=== PATIENT | female | born 1985 | race Caucasian/White ===

== ENCOUNTER 2019-06-29 21:53 | Observation (INO) ==
--- NOTE | 2019-06-29 21:59 | Emergency Department Note ---
Disposition Clinical Impression: Community acquired pneumonia Qualifiers: Laterality: right Lung location: lower lobe of lung Qualified Code(s): J18.1 - Lobar pneumonia, unspecified organism Disposition: Admitted As Inpatient Condition: Fair Referrals: Romaine Pathak [Primary Care Provider] - Forms: ED Satisfaction Letter Time of Disposition: 00:09 SOB HPI - General Chief Complaint: ED Shortness of Breath/Dyspnea Stated Complaint: SHORT OF BREATH Time Seen by Provider: 06/29/19 21:55 Source: patient Mode of arrival: private vehicle Limitations: no limitations Nursing Notes Reviewed: Yes Vital Signs Reviewed: Yes - History of Present Illness Patient presents stating she has had cough and congestion over the course of the week and half. His been taking [id number] medications without much relief. She has periods of coughing and severe shortness of breath. She states this is progressively gotten worse. She believes this is probably due to asthma or COPD because she "smokes like a freight train". She has an old inhaler at home that she is tried without relief. She has had a cough which was initially productive of only small amount of phlegm and now is producing more frequent green phlegm. She denies fevers or chills. She is chest pain other than being sore with coughing. She denies nausea, vomiting, abdominal pain or diarrhea. She denies any extremity swelling or pain. She denies any ill exposures. She states her last period is 3 weeks ago and has no concern of because she notes that would require having sex. She has an 8-year-old at home who is being cared for by her mother at this time. Pt Subjective Complaint: shortness of breath Onset (ago): week(s) (1.5) Context: recent illness Severity: moderate, severe Consistency/Duration: intermittent, gradually worsening Improves with: bronchodilators Worsens with: lying flat, exertion, coughing Known history of: asthma Associated symptoms: Reports: chest pain (Sore with coughing), cough, wheezing, sputum production, orthopnea (Worse coughing when laying flat). Denies: pain with inspiration, fever, lower extremity pain, polyuria, polydipsia, pa rasthesias, palpitations, hemoptysis, diaphoresis, nausea/vomiting, syncope, abdominal pain, rash Treatment prior to arrival: bronchodilator Cough present: Yes Cough Description: Voluntary, Productive, Hacking, Rattling, Wheezy Cough Frequency: Intermittent Sputum production: Yes Sputum Amount: Moderate Sputum Color: Green - Related Data Home oxygen amount: none Home Medications Medication Instructions Recorded Confirmed Quetiapine Fumarate [Seroquel] 200 mg PO DAILY 07/28/18 06/29/19 Naratriptan HCl [Amerge] 2.5 mg PO AD PRN 12/13/18 06/29/19 Gabapentin [Neurontin] 300 mg PO TID 06/29/19 06/29/19 Allergies Allergy/AdvReac Type Severity Reaction Status Date / Time No Known Allergies Allergy Verified 06/29/19 22:01 All systems ED: reviewed and negative except as stated. Past Medical History - Past Medical History Attestation: Yes The following information was validated with the patient. Source: patient, old records reviewed, nursing notes reviewed Medical history: Reports: arthritis, GERD, hepatitis, migraine, other (Recurrent vomiting) Surgical history: Reports: cholecystectomy, orthopedic, other (Right knee surgery) Psychiatric history: Reports: anxiety, bipolar, depression BAR ROLLER history: Reports: no BAR ROLLER history - Social History Smoking Status: Current every day smoker Smokeless Tobacco Status: No Alcohol use: Reports: none Drug use: Reports: none, IV Drug Use (Clean since 2013) Physical Exam - General Limitations: no limitations General appearance: alert, in distress - Head Head exam: atraumatic, normocephalic, normal inspection - Eye Eye exam: Present: normal appearance, PERRL, EOMI - ENT ENT exam: normal exam, normal oropharynx, mucous membranes moist - Neck Neck exam: Present: normal inspection, full ROM, trachea midline - Chest Chest inspection: Present: normal inspection, symmetric chest wall rise - Respiratory Respiratory exam: Present: respiratory distress, wheezes, prolonged expiratory phase, other (Persistent hacking cough) - Cardiovascular Cardiovascular exam: Present: regular rate, normal rhythm, normal heart sounds. Absent: tachycardia - Abdominal Exam Abdominal exam: Present: soft, Non-Tender, normal bowel sounds. Absent: tenderness, distention, guarding, rebound, rigidity - Extremities Exam Extremities exam: Present: normal inspection, full ROM, normal capillary refill. Absent: tenderness, pedal edema, calf tenderness - Expanded Lower Extremity Exam Neurovascular/Tendon exam: Present: normal capillary refill Gait: observed and normal - Back Exam Back exam: Present: normal inspection, full ROM. Absent: tenderness - Neurological Exam Neurological exam: Present: alert, oriented X3 - Psychiatric Psychiatric exam: Present: normal affect, normal mood - Skin Skin exam: Present: warm, dry, intact, normal color. Absent: diaphoresis, pallor Course Course Narrative: 2229: Patient has been having some coughing spells and saturations down to 84 and 85% on room air. This is after a double DuoNeb aerosol. She is producing phlegm clearly will be best observed on oxygen and more aggressive treatment. I have ordered IV, lab work as well as Solu-Medrol, azithromycin and Rocephin intravenously. With return of additional testing I will discuss inpatient observation and orders with Dr. Velez. 0003: Patient has been observed for an extended period in the department. There are nurse staffing issues for admission to [facility] or to our inpatient floor. We will have a third nurse available in the morning at 7 AM. I discussed care with Dr. Velez and he is agreeable with observation of this patient but with the provision that she remain in the emergency department until the staffing is better on the floor in the morning. Verbal orders have been obtained for her observation and we will start those in the emergency departmen t. Vital Signs Temperature 98.1 F 06/29/19 21:54 Pulse Rate 80 06/29/19 21:54 Respiratory Rate 16 06/29/19 21:54 Blood Pressure 134/93 06/29/19 21:54 O2 Sat by Pulse Oximetry 91 06/29/19 21:54 Temperature 98.1 F 06/29/19 21:54 Pulse Rate 80 06/29/19 23:33 Respiratory Rate 22 06/29/19 23:46 Blood Pressure 123/77 06/29/19 23:33 O2 Sat by Pulse Oximetry 90 06/29/19 23:46 Oxygen Delivery Oxygen Delivery Nasal Cannula Shortness of Breath/Dyspnea - Differential Diagnosis Likely: acute exacerbation of chronic obstructive airways disease, pneumonia, asthma with exacerbation - Lab Data Lab results reviewed: Yes I reviewed the patient's lab results. Result diagrams: 06/29/19 23:04 06/29/19 23:04 Lab Results 06/29/19 06/29/19 06/29/19 Range/Units 23:04 23:04 23:04 WBC 6.3 (4.3-11.1) K/mcL RBC 4.30 (3.82-4.97) M/mcL Hgb 12.7 (11.5-15.4) g/dL Hct 37.4 (35.3-44.9) % MCV 87.0 (83.0-100.0) fL MCH 29.5 (28.0-33.3) pg MCHC 34.0 (31.6-35.5) g/dL RDW 14.1 (11.5-14.5) % Plt Count 182 (140-400) K/mcL MPV 11.6 (9.4-12.4) fL Immature Gran % 0.9 (0-4) % Seg Neutrophils % 64.1 % Lymphocytes % 26.9 % Monocytes % 6.2 % Eosinophils % 1.4 % Basophils % 0.5 % Neutrophils # 4.1 (1.6-8.9) K/mcL Lymphocytes # 1.7 (0.6-4.6) K/mcL Monocytes # 0.4 (0.0-1.3) K/mcL Eosinophils # 0.1 (0.0-0.6) K/mcL Basophils # 0.0 (0.0-0.2) K/mcL Sodium 140 (136-145) mEq/L Potassium 2.7 L (3.5-5.1) mEq/L Chloride 102 (98-107) mEq/L Carbon Dioxide 29 (23-29) mEq/L BUN 12 (6-20) mg/dL Creatinine 0.84 (0.60-1.20) mg/dL Est GFR ( Amer) > 60 (> 60) Est GFR (Non-Af Amer) > 60 (> 60) BUN/Creatinine Ratio 14 (6-26) Glucose 83 (70-105) mg/dL Calculated Osmolality 289 (280-300) Lactic Acid 1.3 (0.5-2.2) mmol/L Calcium 8.5 L (8.6-10.3) mg/dL Total Bilirubin 0.5 (0.3-1.0) mg/dL Direct Bilirubin 0.2 (0.0-0.2) mg/dL Indirect Bilirubin 0.3 (0.0-1.2) mg/dL AST 18 (13-39) Units/L ALT 15 (7-52) Units/L Alkaline Phosphatase 76 (34-104) Units/L Serum Total Protein 7.1 (6.4-8.9) g/dL Albumin 3.7 (3.5-5.7) g/dL Globulin 3.4 (2.4-3.5) g/dL Albumin/Globulin Ratio 1.1 (1.1-2.2) Serum , Qual (Negative) 06/29/19 Range/Units 23:04 WBC (4.3-11.1) K/mcL RBC (3.82-4.97) M/mcL Hgb (11.5-15.4) g/dL Hct (35.3-44.9) % MCV (83.0-100.0) fL MCH (28.0-33.3) pg MCHC (31.6-35.5) g/dL RDW (11.5-14.5) % Plt Count (140-400) K/mcL MPV (9.4-12.4) fL Immature Gran % (0-4) % Seg Neutrophils % % Lymphocytes % % Monocytes % % Eosinophils % % Basophils % % Neutrophils # (1.6-8.9) K/mcL Lymphocytes # (0.6-4.6) K/mcL Monocytes # (0.0-1.3) K/mcL Eosinophils # (0.0-0.6) K/mcL Basophils # (0.0-0.2) K/mcL Sodium (136-145) mEq/L Potassium (3.5-5.1) mEq/L Chloride (98-107) mEq/L Carbon Dioxide (23-29) mEq/L BUN (6-20) mg/dL Creatinine (0.60-1.20) mg/dL Est GFR ( Amer) (> 60) Est GFR (Non-Af Amer) (> 60) BUN/Creatinine Ratio (6-26) Glucose (70-105) mg/dL Calculated Osmolality (280-300) Lactic Acid (0.5-2.2) mmol/L Calcium (8.6-10.3) mg/dL Total Bilirubin (0.3-1.0) mg/dL Direct Bilirubin (0.0-0.2) mg/dL Indirect Bilirubin (0.0-1.2) mg/dL AST (13-39) Units/L ALT (7-52) Units/L Alkaline Phosphatase (34-104) Units/L Serum Total Protein (6.4-8.9) g/dL Albumin (3.5-5.7) g/dL Globulin (2.4-3.5) g/dL Albumin/Globulin Ratio (1.1-2.2) Serum , Qual Negative (Negative) - Radiology Data Radiology results reviewed: Yes I reviewed the patient's radiology results. Single view chest x-rays performed. This demonstrates a right lower lobe infiltrate without effusion, pneumothorax or cardiac enlargement. There is no evidence for failure. Bony structures appear normal. Impressions Chest X-Ray 06/29/19 22:00 IMPRESSION: Airway inflammation may be seen with asthma, bronchitis or smoking. Possible patchy basilar airspace disease which could reflect pneumonia or aspiration. D/ / Torrey Palm / Torrey Palm Interpreting Provider: Torrey Palm
[2019-06-29] MEDS ORDERED: Ipratropium/Albuterol Neb 3 ML IH ONE (22:00)
[2019-06-29] MEDS ORDERED: 0.9 % Sodium Chloride 1,000 ML IVC ONE (22:31)
[2019-06-29] MEDS ORDERED: Azithromycin 500 MG in 0.9 % Sodium Chloride 250 ML IVPB ONE (22:31)
[2019-06-29] MEDS ORDERED: cefTRIAXone 2,000 MG in 0.9 % Sodium Chloride Mini Bag 100 ML IVPB ONE (22:31)
[2019-06-29] MEDS ORDERED: methylPREDNISolone 125 MG/2 ML VIAL IVP ONE (22:32)
[2019-06-29] MEDS ORDERED: 0.9 % Sodium Chloride 1,000 ML IVC SCH (22:45)
[2019-06-29 23:14] LABS: Basophils % 0.5 %; Eosinophils # 0.1 K/mcL (0.0-0.6); Eosinophils % 1.4 %; Hematocrit 37.4 % (35.3-44.9); Hemoglobin 12.7 g/dL (11.5-15.4); Immature Granulocytes % 0.9 % (0-4); Lymphocytes # 1.7 K/mcL (0.6-4.6); Lymphocytes % 26.9 %; Mean Corpuscular Hemoglobin 29.5 pg (28.0-33.3); Mean Platelet Volume 11.6 fL (9.4-12.4); Monocytes # 0.4 K/mcL (0.0-1.3); Monocytes % 6.2 %; Neutrophils # 4.1 K/mcL (1.6-8.9); Platelet Count 182 K/mcL (140-400); Red Cell Distribution Width 14.1 % (11.5-14.5); Segmented Neutrophils % 64.1 %; White Blood Count 6.3 K/mcL (4.3-11.1)
[2019-06-29 23:34] LABS: Alanine Aminotransferase 15 Units/L (7-52); Albumin 3.7 g/dL (3.5-5.7); Albumin/Globulin Ratio 1.1 (1.1-2.2); Alkaline Phosphatase 76 Units/L (34-104); Aspartate Amino Transferase 18 Units/L (13-39); BUN/Creatinine Ratio 14 (6-26); Bilirubin,Direct 0.2 mg/dL (0.0-0.2); Bilirubin,Indirect 0.3 mg/dL (0.0-1.2); Bilirubin,Total 0.5 mg/dL (0.3-1.0); Blood Urea Nitrogen 12 mg/dL (6-20); Calcium 8.5 mg/dL (8.6-10.3); Carbon Dioxide 29 mEq/L (23-29); Chloride 102 mEq/L (98-107); Globulin 3.4 g/dL (2.4-3.5); Glucose 83 mg/dL (70-105); Osmolality,Calculated 289 (280-300); Potassium 2.7 mEq/L (3.5-5.1); Sodium 140 mEq/L (136-145); Total Protein 7.1 g/dL (6.4-8.9); eGFR For African Americans > 60 (> 60); eGFR For Non-African Americans > 60 (> 60)
[2019-06-29] MEDS ORDERED: Albuterol 2.5 MG/3 ML NEBULIZER IH ONE (23:36)
[2019-06-30] MEDS ORDERED: Naloxone 0.4 MG/ML INJ IVP PRN (01:02)
[2019-06-30] MEDS ORDERED: Mag Hydrox/Al Hydrox/Simeth 30 ML UDC PO PRN (01:02)
[2019-06-30] MEDS ORDERED: MOM Conc 10 ML UD.LIQ PO PRN (01:02)
[2019-06-30] MEDS ORDERED: (Naratriptan Hcl [Amerge] 2.5 MG) PO PRN (01:02)
[2019-06-30] MEDS ORDERED: Albuterol 2.5 MG/3 ML NEBULIZER IH PRN (01:02)
[2019-06-30] MEDS ORDERED: 0.9 % Sodium Chloride 1,000 ML IVC SCH (01:02)
[2019-06-30] MEDS ORDERED: Ondansetron ODT 4 MG TAB.RAPDIS SL PRN (01:02)
[2019-06-30] MEDS ORDERED: Ipratropium/Albuterol Neb 3 ML IH SCH (04:00)
[2019-06-30] MEDS ORDERED: predniSONE 20 MG TABLET PO SCH (08:00)
[2019-06-30 08:39] VITALS: BP 136/89
[2019-06-30] MEDS ORDERED: Gabapentin 300 MG CAPSULE PO SCH (09:00)
[2019-06-30] MEDS ORDERED: Azithromycin 500 MG in 0.9 % Sodium Chloride 250 ML IVPB SCH (19:00)
[2019-06-30] MEDS ORDERED: cefTRIAXone 2,000 MG in 0.9 % Sodium Chloride Mini Bag 100 ML IVPB SCH (20:00)
== END 2019-06-30 09:30 | disposition left against medical advice (07) ==
LOC: INPPIK 21:53 → EMEROOPIK 21:53 → INPPIK 06-30 00:59
PROVIDERS: ADMIT Internal Medicine; ATTEND Internal Medicine